=== PATIENT | female | born 1965 | race Caucasian/White ===

== ENCOUNTER → 2017-10-25 | Outpatient (CLI) | payer BC ==
[2016-06-22 11:55] VITALS: BP 129/75
--- NOTE | 2017-10-25 14:34 | MRI ---
MRI right wrist without contrast Indication: Right wrist pain and popping Comparison: None Technique: Multiplanar multi sequence MR images of the right wrist were obtained without contrast. Findings: Some of the sequences were degraded by motion. There are minimal degenerative changes of the thumb CMC joint. The joint spaces are otherwise grossly maintained. There is no evidence for acute fracture or dislocation. No joint effusion. There is mild degenerative signal of the TFC, without evidence for high-grade tear. The tendons about the wrist gr ossly intact. The carpal tunnel is unremarkable. Impression: Minimal degenerative change of the thumb CMC joint. Mild TFC fraying. Otherwise unremarka ble MRI of the right wrist. Reported By:
== END ==
LOC: RAD 13:10
PROVIDERS: ATTEND Internal Medicine
DX: M79.641 Pain in right hand (principal); M25.531 Pain in right wrist
CPT/HCPCS: 73218

== ENCOUNTER 2018-04-11 14:03 | Observation (INO) ==
[2018-04-11 14:14] VITALS: BMI 28.8
[2018-04-11 14:53] LABS: BILIRUBIN,URINE NEGATIVE (NEGATIVE); BLOOD/HEMOGLOBIN,URINE NEGATIVE (NEGATIVE); GLUCOSE, URINE NEGATIVE (NEGATIVE); KETONES,URINE NEGATIVE (NEGATIVE); LEUKOCYTE ESTERASE ,URINE NEGATIVE (NEGATIVE); NITRITES,URINE NEGATIVE (NEGATIVE); PROTEIN,URINE NEGATIVE (NEGATIVE); UROBILINOGEN,URINE NORMAL (NORMAL)
[2018-04-11 14:59] LABS: APPEARANCE,URINE CLEAR (CLEAR); COLOR,URINE YELLOW (YELLOW)
[2018-04-11] MEDS ORDERED: NS 1000 ML 1,000 ML ONE (15:16)
[2018-04-11] MEDS ORDERED: NS 1000 ML 1,000 ML IV ONE (15:33)
[2018-04-11 15:46] LABS: AMYLASE 57 Units/L (25-115); LIPASE 162 Units/L (73-393)
[2018-04-11 15:54] LABS: BASOPHILS # (AUTO) 0.1 X10^3/uL (0.0-0.1); EOSINOPHILS # (AUTO) 0.1 x10^3/uL (0.0-0.2); EOSINOPHILS % (AUTO) 0.9 % (0.9-2.9); HEMATOCRIT 39.6 % (36.0-47.0); HEMOGLOBIN 13.7 g/dL (12.0-16.0); LYMPHOCYTES # (AUTO) 2.7 X10^3/uL (1.3-2.9); LYMPHOCYTES % (AUTO) 27.3 % (21.0-51.0); MEAN CORPUSCULAR HEMOGLOBIN 31.1 pg (27.0-34.0); MEAN CORPUSCULAR HGB CONC 34.6 g/dL (33.0-35.0); MEAN CORPUSCULAR VOLUME 89.9 fL (80.0-100.0); MEAN PLATELET VOLUME 9.2 fL (7.4-11.0); MONOCYTES # (AUTO) 0.7 x10^3/uL (0.3-0.8); MONOCYTES % (AUTO) 6.6 % (0.0-13.0); NEUTROPHILS # (AUTO) 6.4 x10^3/uL (2.2-4.8); NEUTROPHILS % (AUTO) 64.2 % (42.0-75.0); PLATELET COUNT 269 X10^3/uL (150.0-450.0); RED CELL DISTRIBUTION WIDTH 13.9 % (11.6-16.5); WHITE BLOOD COUNT 10.1 X10^3/uL (3.6-10.0)
[2018-04-11 16:12] LABS: ALANINE AMINOTRANSFERASE 35 Units/L (12-78); ALBUMIN 3.5 g/dL (3.4-5.0); ALKALINE PHOSPHATASE 50 Units/L (46-116); ASPARTATE AMINO TRANSFERASE 34 Units/L (15-37); BLOOD UREA NITROGEN 13 mg/dL (7-18); CALCIUM 9.2 mg/dL (8.5-10.1); CHLORIDE 102 mmol/L (98-107); CREATININE 0.82 mg/dL (0.55-1.02); SODIUM 138 mmol/L (136-145); TOTAL PROTEIN 6.7 g/dL (6.4-8.2); eGFR NON BLACK RACES > 60 (>60)
[2018-04-11] MEDS: NS 1000 ML 1,000 ML IV SCH (17:45)
[2018-04-11] MEDS: PEPCID 20 MG IV PREMIX* 20 MG/50 ML BAG IV PRN (17:45)
[2018-04-11] MEDS ORDERED: NS 1000 ML 1,000 ML IV SCH (18:00)
[2018-04-11] MEDS: DILAUDID INJ IVP PRN (20:57)
[2018-04-11] MEDS: ZOFRAN INJ 4 MG VIAL IVP PRN (20:58)
[2018-04-12] MEDS: DILAUDID INJ IVP PRN ×8 (01:29→20:23)
[2018-04-12] MEDS: NS 1000 ML 1,000 ML IV SCH ×4 (01:29→22:32)
[2018-04-12] MEDS: ZOFRAN INJ 4 MG VIAL IVP PRN ×3 (01:58→20:23)
[2018-04-12 05:23] LABS: BASOPHILS # (AUTO) 0.1 X10^3/uL (0.0-0.1); BASOPHILS % (AUTO) 0.8 % (0.2-1.0); EOSINOPHILS # (AUTO) 0.1 x10^3/uL (0.0-0.2); EOSINOPHILS % (AUTO) 1.2 % (0.9-2.9); HEMATOCRIT 37.1 % (36.0-47.0); HEMOGLOBIN 12.7 g/dL (12.0-16.0); LYMPHOCYTES # (AUTO) 2.9 X10^3/uL (1.3-2.9); LYMPHOCYTES % (AUTO) 37.1 % (21.0-51.0); MEAN CORPUSCULAR HGB CONC 34.3 g/dL (33.0-35.0); MEAN CORPUSCULAR VOLUME 90.3 fL (80.0-100.0); MONOCYTES # (AUTO) 0.6 x10^3/uL (0.3-0.8); MONOCYTES % (AUTO) 7.5 % (0.0-13.0); NEUTROPHILS # (AUTO) 4.2 x10^3/uL (2.2-4.8); NEUTROPHILS % (AUTO) 53.4 % (42.0-75.0); PLATELET COUNT 238 X10^3/uL (150.0-450.0); RED BLOOD COUNT 4.11 X10^6/uL (3.5-5.4); RED CELL DISTRIBUTION WIDTH 13.7 % (11.6-16.5); WHITE BLOOD COUNT 7.8 X10^3/uL (3.6-10.0)
[2018-04-12 05:59] LABS: ALANINE AMINOTRANSFERASE 33 Units/L (12-78); ALKALINE PHOSPHATASE 43 Units/L (46-116); ASPARTATE AMINO TRANSFERASE 28 Units/L (15-37); BLOOD UREA NITROGEN 12 mg/dL (7-18); CALCIUM 7.9 mg/dL (8.5-10.1); CARBON DIOXIDE 30.6 mmol/L (21-32); CHLORIDE 105 mmol/L (98-107); COR CA(FOR HYPOALB) 8.7 mg/dL (8.5-10.1); CREATININE 0.83 mg/dL (0.55-1.02); SODIUM 140 mmol/L (136-145); TOTAL PROTEIN 6.1 g/dL (6.4-8.2); eGFR NON BLACK RACES > 60 (>60)
[2018-04-12] MEDS: PEPCID 20 MG IV PREMIX* 20 MG/50 ML BAG IV PRN (08:40)
[2018-04-12] MEDS ORDERED: FLAGYL IV PREMIX 500 MG BAG 500 MG/100 ML BAG IV ONE (08:42)
[2018-04-12] MEDS ORDERED: LEVAQUIN PREMIX IV 500 MG 500 MG/100 ML BAG IV ONE (08:43)
[2018-04-12] MEDS ORDERED: NEO-SYNEPHRINE INJ ONE (09:29)
--- NOTE | 2018-04-12 09:45 | DR.H&P ---
H&P - History & Physical for Day of: H&P Date: 04/11/18 - Chief Complaint Chief Complaint: RLQ PAIN, FEVER - History of Present Illness History of Present Illness: 52 WF ER ADMISSION WITH ACUTE RIGHT LOWER QUADRANT PAIN. PT ADMITTED FOR POSSIBLE ACUTE APPENDICITIS. CONSULT DR SHERIDAN. PT STATES HER ABD PAIN WAS ONSET 2 DAYS AGO, SEEN IN WALKIN CLINIC, PAIN WORSENED. PT HAS PMH OF HTN, AR - Past Medical History Past Medical History: Hypertension - Past Surgical History Surgical History: Cholecystectomy, Hysterectomy, Ortho Surgery - Family History Family Medical History: Diabetes Mellitus, Cancer, Coronary Artery Disease, Hypertension - Social History Does patient currently use any type of tobacco product: No Have you used tobacco products in the last 12 months: No Type of Tobacco Use: None Does any household member use tobacco: No Alcohol Use: None Drug Use: None - Medications Home Medications: No Known Drug Allergies Allergy (Verified 04/11/18 14:04) CONTINUE taking the following medications losartan 1 tab PO DAILY 04/11/18 [History] meclizine 1 tab PO HS 04/11/18 [History] meloxicam 1 tab PO BID 04/11/18 [History] ondansetron HCl [Zofran] 1 tab PO Q8H PRN 04/11/18 [History] phendimetrazine tartrate 1 tab PO BID 04/11/18 [History] ranitidine HCl [Zantac] 1 tab PO BID 04/11/18 [History] ropinirole 1 tab PO HS 04/11/18 [History] simvastatin [Zocor] 1 tab PO HS 04/11/18 [History] sumatriptan succinate 1 tab PO DAILY PRN 04/11/18 [History] temazepam 1 tab PO HS 04/11/18 [History] tramadol 50 mg PO TID PRN 04/11/18 [History] venlafaxine 1 tab PO BID 04/11/18 [History] - Review of Systems Constitutional: Fever, Chills ENT: No Symptoms Reported Respiratory: No Symptoms Reported Gastrointestinal: Nausea, Abdominal Pain Musculoskeletal: No Symptoms Reported Skin: No Symptoms Reported Neurological: No Symptoms Reported - Physical Exam Vital Signs: Temperature 98.2 F Pulse Rate [Left Radial] 78 Pulse Rate 95 Respiratory Rate 18 Blood Pressure [Right Arm] 112/56 Blood Pressure 127/83 O2 Sat by Pulse Oximetry 95 Oriented: Normal Eyes: Normal Ear: Normal Nose: Normal Throat: Normal Respiratory: Clear Throughout Cardiovascular: Normal : Normal Auscultation: Bowel Sounds: Normal Palpation: Normal Tenderness: RLQ Skin: Normal Musculoskeletal: Normal Psychiatric: Normal Mood Description: Calm Speech Pattern: Clear, Appropriate - Assessment/Plan (1) Acute bilateral lower abdominal pain Status: Acute Plan: ADMIT, NPO. CONSULT DR SHERIDAN FOR SURGICAL CONSULTATION. VERIFY HOME MEDS, PAIN AND NAUSEA CONTROL (2) GERD (gastroesophageal reflux disease) Status: Chronic - Allergies Allergies/Adverse Reactions: Allergies Allergy/AdvReac Type Severity Reaction Status Date / Time No Known Drug Allergies Allergy Verified 04/11/18 14:04
[2018-04-12] MEDS ORDERED: LR 1000 ML IV 1,000 ML IV ONE (10:01)
[2018-04-12] MEDS ORDERED: ZOFRAN INJ 4 MG VIAL IVP PRN (10:28)
[2018-04-12] MEDS ORDERED: REGLAN INJ 10 MG VIAL IVP PRN (10:28)
[2018-04-12] MEDS ORDERED: BENADRYL INJ 50 MG VIAL IVP PRN (10:28)
[2018-04-12] MEDS ORDERED: PHENERGAN INJ 25 MG IVP PRN (10:28)
[2018-04-12] MEDS ORDERED: ANCEF 1 GRAM IV PREMIX* 1 G/50 ML BAG IV ONE (10:32)
[2018-04-12] MEDS ORDERED: FENTANYL INJ 250 mcg ONE (10:37)
[2018-04-12] MEDS ORDERED: DILAUDID INJ ONE (11:52)
[2018-04-12] MEDS ORDERED: SUPRANE IN ONE (15:40)
[2018-04-12] MEDS ORDERED: VERSED ONE (15:40)
[2018-04-12] MEDS ORDERED: TORADOL 30 MG VIAL ONE (15:40)
[2018-04-12] MEDS ORDERED: QUELICIN (OR ANECTINE) ONE (15:40)
[2018-04-12] MEDS ORDERED: XYLOCAINE 1 % (PLAIN) ONE (15:40)
[2018-04-12] MEDS ORDERED: DIPRIVAN VIAL ONE (15:40)
[2018-04-12] MEDS ORDERED: NORCURON INJ 10 MG VIAL ONE (15:40)
[2018-04-12] MEDS ORDERED: ZOFRAN INJ 4 MG VIAL ONE (15:40)
[2018-04-12] MEDS ORDERED: ROBINUL ONE (15:40)
--- NOTE | 2018-04-12 16:02 | RAD ---
Examination: AP chest History: Are you cue pain Comparison reference 06/14/2016 Findings: Continued normal heart size with clear lungs and pleural spaces. Impression: No change; no acute chest findings. Reported By:
[2018-04-13] MEDS ORDERED: PHENERGAN INJ 25 MG IV PRN (00:13)
[2018-04-13] MEDS: DILAUDID INJ IVP PRN ×3 (00:23→13:22)
[2018-04-13] MEDS: NS 1000 ML 1,000 ML IV SCH ×2 (04:41→13:22)
[2018-04-13 06:06] LABS: BASOPHILS % (AUTO) 0.3 % (0.2-1.0); EOSINOPHILS # (AUTO) 0.1 x10^3/uL (0.0-0.2); EOSINOPHILS % (AUTO) 0.9 % (0.9-2.9); HEMATOCRIT 40.1 % (36.0-47.0); LYMPHOCYTES # (AUTO) 1.5 X10^3/uL (1.3-2.9); LYMPHOCYTES % (AUTO) 13.6 % (21.0-51.0); MEAN CORPUSCULAR HEMOGLOBIN 31.2 pg (27.0-34.0); MEAN CORPUSCULAR HGB CONC 34.8 g/dL (33.0-35.0); MEAN CORPUSCULAR VOLUME 89.7 fL (80.0-100.0); MEAN PLATELET VOLUME 8.5 fL (7.4-11.0); MONOCYTES # (AUTO) 0.8 x10^3/uL (0.3-0.8); MONOCYTES % (AUTO) 7.2 % (0.0-13.0); NEUTROPHILS # (AUTO) 8.4 x10^3/uL (2.2-4.8); PLATELET COUNT 260 X10^3/uL (150.0-450.0); RED BLOOD COUNT 4.48 X10^6/uL (3.5-5.4); RED CELL DISTRIBUTION WIDTH 13.9 % (11.6-16.5); WHITE BLOOD COUNT 10.7 X10^3/uL (3.6-10.0)
[2018-04-13 06:20] LABS: ALANINE AMINOTRANSFERASE 41 Units/L (12-78); ALBUMIN 3.2 g/dL (3.4-5.0); ALKALINE PHOSPHATASE 50 Units/L (46-116); ASPARTATE AMINO TRANSFERASE 42 Units/L (15-37); BLOOD UREA NITROGEN 5 mg/dL (7-18); CALCIUM 8.1 mg/dL (8.5-10.1); CARBON DIOXIDE 28.9 mmol/L (21-32); CHLORIDE 103 mmol/L (98-107); COR CA(FOR HYPOALB) 8.7 mg/dL (8.5-10.1); CREATININE 0.78 mg/dL (0.55-1.02); SODIUM 139 mmol/L (136-145); TOTAL PROTEIN 6.9 g/dL (6.4-8.2); eGFR NON BLACK RACES > 60 (>60)
[2018-04-13] MEDS ORDERED: MILK OF MAGNESIA PO SCH (09:00)
[2018-04-13] MEDS: PEPCID 20 MG IV PREMIX* 20 MG/50 ML BAG IV PRN (09:14)
[2018-04-13 16:18] VITALS: BP 123/64
[2018-04-13] MEDS ORDERED: COLACE CAP 100 MG PO SCH (21:00)
--- NOTE | 2018-04-24 13:56 | ED.ABDFE ---
HPI Time Seen Time seen: 15:35 PCP Primary Care Physician: JENNIFER Gallardo WATCH CRYSTAL MOLDER HPI Comment HPI Comment: RLG ABDOMINAL PAIN WITH NAUSEA FOR 7 DAYS. HER RETAIL SALES CONSULTANT DID ABD AND PELVIS CT YESTERDAY BUT IT DID NOT REPORT ABDNORMAL FINDINGS. STEP IN A HOLE TODAY. PAIN PROGRESSIVELY GOT WORSE. NO FEVER. NO DYSURIA. TAKING FOFRAN FOR NAUSEA. Complaint Doctors Chief Complaint Comments: ABDOMINAL PAIN TIMES FOR 7 DAYS WITH NAUSEA. Chief Complaint:: PT SENT OVER TO BE EVALUATED FOR HER ABD PAIN TO HER RLQ PAIN. PT SEEN BY HER PCP ON 04/10/[address] PERFORMED .PT C/O N/V SINCE LAST SATURDAY AND PT C/O STEPPING IN A HOLE TODAY AND THAT HER PAIN HAD GOTTEN BETTER AND NOW IT IS WORSE". Self Treatment fo Chief Complaint: ZOFRAN .. Reviewed Nurses Notes Review: Yes Source History Provided: Patient Mode of arrival Mode of Arrival: Ambulatory Timing Onset of Chief Complaint: 04/07/18 Came on: Suddenly Duration Since Onset: Constant Location Location: RLQ Severity Severity: Moderate Quality Quality: Sharp PMH PMH Past Medical History: Yes Past Medical History: Hypertension Past Surgical History: Yes Surgical History: Cholecystectomy, Hysterectomy and Ortho Surgery Past Surgical History Comment: LYMPHOMA, Family History History of Family Medical Conditions: Yes Family Medical History: Diabetes Mellitus, Cancer and Hypertension Family Medical History Comment: HEART DISEASE. Social History Does patient currently use any type of tobacco product: No Have you used tobacco products in the last 12 months: No Type of Tobacco Use: None Does any household member use tobacco: No Alcohol Use: None Do you use any recreational Drugs:: No Lives With: Significant Other Lives Where: Home infectious screening In the last 2 months have you had wt loss of >10#?: NO Have you had fever, night sweats or hemotysis?: No Have you traveled outside the country in the last 6 months?: No Isolation: Standard PE Vital Signs Vitals: Temperature 98.2 F Pulse Rate [Left Radial] 69 Pulse Rate 62 Respiratory Rate 18 Blood Pressure [Right Arm] 123/64 Blood Pressure 132/77 O2 Sat by Pulse Oximetry 97 COURSE Treatment Treatment: Consult Dr. Vela and speak with Dr. Coats for admission. ROR Labs Reviewed Result Diagrams: 04/13/18 05:45 04/13/18 05:45 Laboratory: WBC 10.7 X10^3/uL (3.6-10.0) H 04/13/18 05:45 RBC 4.48 X10^6/uL (3.5-5.4) 04/13/18 05:45 Hgb 14.0 g/dL (12.0-16.0) 04/13/18 05:45 Hct 40.1 % (36.0-47.0) 04/13/18 05:45 MCV 89.7 fL (80.0-100.0) 04/13/18 05:45 MCH 31.2 pg (27.0-34.0) 04/13/18 05:45 MCHC 34.8 g/dL (33.0-35.0) 04/13/18 05:45 RDW 13.9 % (11.6-16.5) 04/13/18 05:45 Plt Count 260 X10^3/uL (150.0-450.0) 04/13/18 05:45 MPV 8.5 fL (7.4-11.0) 04/13/18 05:45 Neut % (Auto) 78.0 % (42.0-75.0) H 04/13/18 05:45 Lymph % (Auto) 13.6 % (21.0-51.0) L 04/13/18 05:45 [place] % (Auto) 7.2 % (0.0-13.0) 04/13/18 05:45 Eos % (Auto) 0.9 % (0.9-2.9) 04/13/18 05:45 Baso % (Auto) 0.3 % (0.2-1.0) 04/13/18 05:45 Neut # (Auto) 8.4 x10^3/uL (2.2-4.8) H 04/13/18 05:45 Lymph # (Auto) 1.5 X10^3/uL (1.3-2.9) 04/13/18 05:45 [place] # (Auto) 0.8 x10^3/uL (0.3-0.8) 04/13/18 05:45 Eos # (Auto) 0.1 x10^3/uL (0.0-0.2) 04/13/18 05:45 Baso # (Auto) 0.0 X10^3/uL (0.0-0.1) 04/13/18 05:45 Absolute Nucleated RBC 0.0 /100WBC 04/13/18 05:45 INR Target Range - 04/12/18 09:45 INR 1.01 (0.8-1.3) 04/12/18 09:45 Sodium 139 mmol/L (136-145) 04/13/18 05:45 Corrected Sodium TNP 04/13/18 05:45 Potassium 4.0 mmol/L (3.5-5.1) 04/13/18 05:45 Chloride 103 mmol/L (98-107) 04/13/18 05:45 Carbon Dioxide 28.9 mmol/L (21-32) 04/13/18 05:45 BUN 5 mg/dL (7-18) L 04/13/18 05:45 Creatinine 0.78 mg/dL (0.55-1.02) 04/13/18 05:45 Est GFR (MDRD) Af Amer > 60 (>60) 04/13/18 05:45 Est GFR (MDRD) Non-Af > 60 (>60) 04/13/18 05:45 Glucose 82 mg/dL (65-99) 04/13/18 05:45 Calcium 8.1 mg/dL (8.5-10.1) L 04/13/18 05:45 Corrected Calcium 8.7 mg/dL (8.5-10.1) 04/13/18 05:45 Total Bilirubin 0.20 mg/dL (0.2-1.0) 04/13/18 05:45 AST 42 Units/L (15-37) H 04/13/18 05:45 ALT 41 Units/L (12-78) 04/13/18 05:45 Alkaline Phosphatase 50 Units/L (46-116) 04/13/18 05:45 Total Protein 6.9 g/dL (6.4-8.2) 04/13/18 05:45 Albumin 3.2 g/dL (3.4-5.0) L 04/13/18 05:45 Globulin 3.7 g/dL (2.5-4.5) 04/13/18 05:45 Albumin/Globulin Ratio 0.9 Ratio (1.1-2.1) L 04/13/18 05:45 Amylase 57 Units/L (25-115) 04/11/18 15:26 Lipase 162 Units/L (73-393) 04/11/18 15:26 Specimen Type Clean catch urine 04/11/18 14:37 Urine Color Yellow (YELLOW) 04/11/18 14:37 Urine Appearance Clear (CLEAR) 04/11/18 14:37 Urine pH 5.0 (5.0 - 8.0) 04/11/18 14:37 Ur Specific [place] 1.010 (1.000-1.030) 04/11/18 14:37 Urine Protein Negative (NEGATIVE) 04/11/18 14:37 Urine Glucose (UA) Negative (NEGATIVE) 04/11/18 14:37 Urine Ketones Negative (NEGATIVE) 04/11/18 14:37 Urine Occult Blood Negative (NEGATIVE) 04/11/18 14:37 Urine Nitrite Negative (NEGATIVE) 04/11/18 14:37 Urine Bilirubin Negative (NEGATIVE) 04/11/18 14:37 Urine Urobilinogen Normal (NORMAL) 04/11/18 14:37 Ur Leukocyte Esterase Negative (NEGATIVE) 04/11/18 14:37 Tissue Pathology To follow 04/12/18 11:35 Instructions Instructions: Acetaminophen; Hydrocodone tablets or capsules Nausea and Vomiting, Adult, [id number] Laparoscopic Appendectomy, Adult, Care After, [id number] Forms: Patient Portal
--- NOTE | 2018-05-08 08:31 | PCM.DCPLAN ---
Discharge Summary - Admission Date Date of Admission: 04/12/18 - Discharge Date Discharge Date: 04/13/18 - Admission Diagnoses (1) Appendicitis Status: Acute (2) Hypertension Status: Acute - Discharge Diagnoses Discharge Diagnosis: for the last 12Same as admission diagnosis - Discharge Medications Discharge Medications: Home Medication List losartan 1 tab PO DAILY 04/11/18 [History] meclizine 1 tab PO HS 04/11/18 [History] meloxicam 1 tab PO BID 04/11/18 [History] ondansetron HCl [Zofran] 1 tab PO Q8H PRN 04/11/18 [History] phendimetrazine tartrate 1 tab PO BID 04/11/18 [History] ranitidine HCl [Zantac] 1 tab PO BID 04/11/18 [History] ropinirole 1 tab PO HS 04/11/18 [History] simvastatin [Zocor] 1 tab PO HS 04/11/18 [History] sumatriptan succinate 1 tab PO DAILY PRN 04/11/18 [History] temazepam 1 tab PO HS 04/11/18 [History] tramadol 50 mg PO TID PRN 04/11/18 [History] venlafaxine 1 tab PO BID 04/11/18 [History] hydrocodone-acetaminophen [Lorcet (hydrocodone)] 1 tab PO Q4HR PRN #20 tab 04/13 [Rx] Prescriptions: hydrocodone-acetaminophen [Lorcet (hydrocodone)] POLINA OSPINA - Hospital Course Vital Signs: Temperature 98.2 F Pulse Rate [Left Radial] 69 Pulse Rate 62 Respiratory Rate 18 Blood Pressure [Right Arm] 123/64 Blood Pressure 132/77 O2 Sat by Pulse Oximetry 97 Latest Lab Results: Laboratory Last Values WBC 10.7 X10^3/uL (3.6-10.0) H 04/13/18 05:45 RBC 4.48 X10^6/uL (3.5-5.4) 04/13/18 05:45 Hgb 14.0 g/dL (12.0-16.0) 04/13/18 05:45 Hct 40.1 % (36.0-47.0) 04/13/18 05:45 MCV 89.7 fL (80.0-100.0) 04/13/18 05:45 MCH 31.2 pg (27.0-34.0) 04/13/18 05:45 MCHC 34.8 g/dL (33.0-35.0) 04/13/18 05:45 RDW 13.9 % (11.6-16.5) 04/13/18 05:45 Plt Count 260 X10^3/uL (150.0-450.0) 04/13/18 05:45 MPV 8.5 fL (7.4-11.0) 04/13/18 05:45 Neut % (Auto) 78.0 % (42.0-75.0) H 04/13/18 05:45 Lymph % (Auto) 13.6 % (21.0-51.0) L 04/13/18 05:45 [place] % (Auto) 7.2 % (0.0-13.0) 04/13/18 05:45 Eos % (Auto) 0.9 % (0.9-2.9) 04/13/18 05:45 Baso % (Auto) 0.3 % (0.2-1.0) 04/13/18 05:45 Neut # (Auto) 8.4 x10^3/uL (2.2-4.8) H 04/13/18 05:45 Lymph # (Auto) 1.5 X10^3/uL (1.3-2.9) 04/13/18 05:45 [place] # (Auto) 0.8 x10^3/uL (0.3-0.8) 04/13/18 05:45 Eos # (Auto) 0.1 x10^3/uL (0.0-0.2) 04/13/18 05:45 Baso # (Auto) 0.0 X10^3/uL (0.0-0.1) 04/13/18 05:45 Absolute Nucleated RBC 0.0 /100WBC 04/13/18 05:45 INR Target Range - 04/12/18 09:45 INR 1.01 (0.8-1.3) 04/12/18 09:45 Sodium 139 mmol/L (136-145) 04/13/18 05:45 Corrected Sodium TNP 04/13/18 05:45 Potassium 4.0 mmol/L (3.5-5.1) 04/13/18 05:45 Chloride 103 mmol/L (98-107) 04/13/18 05:45 Carbon Dioxide 28.9 mmol/L (21-32) 04/13/18 05:45 BUN 5 mg/dL (7-18) L 04/13/18 05:45 Creatinine 0.78 mg/dL (0.55-1.02) 04/13/18 05:45 Est GFR (MDRD) Af Amer > 60 (>60) 04/13/18 05:45 Est GFR (MDRD) Non-Af > 60 (>60) 04/13/18 05:45 Glucose 82 mg/dL (65-99) 04/13/18 05:45 Calcium 8.1 mg/dL (8.5-10.1) L 04/13/18 05:45 Corrected Calcium 8.7 mg/dL (8.5-10.1) 04/13/18 05:45 Total Bilirubin 0.20 mg/dL (0.2-1.0) 04/13/18 05:45 AST 42 Units/L (15-37) H 04/13/18 05:45 ALT 41 Units/L (12-78) 04/13/18 05:45 Alkaline Phosphatase 50 Units/L (46-116) 04/13/18 05:45 Total Protein 6.9 g/dL (6.4-8.2) 04/13/18 05:45 Albumin 3.2 g/dL (3.4-5.0) L 04/13/18 05:45 Globulin 3.7 g/dL (2.5-4.5) 04/13/18 05:45 Albumin/Globulin Ratio 0.9 Ratio (1.1-2.1) L 04/13/18 05:45 Amylase 57 Units/L (25-115) 04/11/18 15:26 Lipase 162 Units/L (73-393) 04/11/18 15:26 Specimen Type Clean catch urine 04/11/18 14:37 Urine Color Yellow (YELLOW) 04/11/18 14:37 Urine Appearance Clear (CLEAR) 04/11/18 14:37 Urine pH 5.0 (5.0 - 8.0) 04/11/18 14:37 Ur Specific [place] 1.010 (1.000-1.030) 04/11/18 14:37 Urine Protein Negative (NEGATIVE) 04/11/18 14:37 Urine Glucose (UA) Negative (NEGATIVE) 04/11/18 14:37 Urine Ketones Negative (NEGATIVE) 04/11/18 14:37 Urine Occult Blood Negative (NEGATIVE) 04/11/18 14:37 Urine Nitrite Negative (NEGATIVE) 04/11/18 14:37 Urine Bilirubin Negative (NEGATIVE) 04/11/18 14:37 Urine Urobilinogen Normal (NORMAL) 04/11/18 14:37 Ur Leukocyte Esterase Negative (NEGATIVE) 04/11/18 14:37 Tissue Pathology To follow 04/12/18 11:35 Hospital Course: 52 WF ER ADMISSION WITH ACUTE RIGHT LOWER QUADRANT PAIN. PT ADMITTED FOR POSSIBLE ACUTE APPENDICITIS. DR OSPINA SAW IN CONSULT. PT STATES HER ABD PAIN WAS ONSET 2 DAYS AGO, SEEN IN WALKIN CLINIC, PAIN WORSENED. THE PATIENT UNDERWENT APPENDECTOMY. sYMPTOMS IMPROVED AND PATIENT WAS DISCHARGED TO BE FOLLOWED IN OP SETTING. - Discharge Plan Disposition: 01 HOME, SELF-CARE Condition: Stable Prescriptions: hydrocodone-acetaminophen [Lorcet (hydrocodone)] 1 tab PO Q4HR PRN #20 tab PRN Reason: Moderate Pain - Follow ups/Referrals Follow ups/Referrals: Nj Colon [Primary Care Provider] - 1 WEEK POLINA OSPINA [STAFF PHYSICIAN] - 04/21/18 10:00 am (call office for appointment to be schelduled for 04/21/2018 office number is [phone].) - Instructions Instructions: Acetaminophen; Hydrocodone tablets or capsules, Nausea and Vomiting, Adult, [id number], Laparoscopic Appendectomy, Adult, Care After, [id number] Additional Instructions: may go home as per , dr ospina gave new orders. Forms: Patient Portal
== END 2018-04-13 17:05 | disposition home or self-care (01) ==
LOC: MED/SURG 14:03 → ER 14:03 → MED/SURG 17:37
PROVIDERS: ADMIT Internal Medicine; ATTEND Internal Medicine
PROC: APPYLAP (ICD-10-PCS; 2018-04-12 10:45)
DX: K21.9 Gastro-esophageal reflux disease without esophagitis; J30.89 Other allergic rhinitis; R10.31 Right lower quadrant pain; E03.8 Other specified hypothyroidism; K35.89 Other acute appendicitis; N73.6 Female pelvic peritoneal adhesions (postinfective); I10 Essential (primary) hypertension
CPT/HCPCS: 36415; 71010; 71045; 80053; 81003; 82150; 83690; 85025; 85610; 93005; 93010; 96365; 99217; 99218; 99283; 99284; A4222; S0028; S0030; G0378; J0330; J0690; J1170; J1885; J1956; J2250; J2370; J2405; J2550; J2704; J3010; J3490; J7030; J7120

== ENCOUNTER 2022-05-23 11:24 | Inpatient (IN) ==
[2022-05-23 12:50] LABS: ALANINE AMINOTRANSFERASE 21 Units/L (12-78); ALBUMIN 3.1 g/dL (3.4-5.0); ALKALINE PHOSPHATASE 178 Units/L (46-116); ASPARTATE AMINO TRANSFERASE 44 Units/L (15-37); BLOOD UREA NITROGEN 13 mg/dL (7-18); CALCIUM 7.5 mg/dL (8.5-10.1); CARBON DIOXIDE 26.8 mmol/L (21-32); CHLORIDE 96 mmol/L (98-107); COR CA(FOR HYPOALB) 8.2 mg/dL (8.5-10.1); COR NA(FOR HYPERGLY) 132 mmol/L (136-145); CREATININE 1.16 mg/dL (0.55-1.02); SODIUM 131 mmol/L (136-145); TOTAL PROTEIN 7.6 g/dL (6.4-8.2); TSH (3RD GENERATION) 8.354 uIU/mL (0.358-3.74); eGFR NON BLACK RACES 52 (>60)
[2022-05-23 13:02] LABS: BASOPHILS # (AUTO) 0.1 X10^3/uL (0.0-0.1); BASOPHILS % (AUTO) 0.9 % (0.2-1.0); EOSINOPHILS % (AUTO) 0.3 % (0.9-2.9); LYMPHOCYTES # (AUTO) 5.5 X10^3/uL (1.3-2.9); MEAN CORPUSCULAR HEMOGLOBIN 29.1 pg (27.0-34.0); MEAN CORPUSCULAR HGB CONC 36.5 g/dL (33.0-35.0); MEAN CORPUSCULAR VOLUME 79.7 fL (80.0-100.0); MEAN PLATELET VOLUME 7.6 fL (7.4-11.0); MONOCYTES # (AUTO) 0.1 x10^3/uL (0.3-0.8); MONOCYTES % (AUTO) 1.3 % (0.0-13.0); NEUTROPHILS # (AUTO) 0.5 x10^3/uL (2.2-4.8); NEUTROPHILS % (AUTO) 8.5 % (42.0-75.0); RED BLOOD COUNT 1.69 X10^6/uL (3.5-5.4); RED CELL DISTRIBUTION WIDTH 16.1 % (11.6-16.5); WHITE BLOOD COUNT 6.2 X10^3/uL (3.6-10.0)
[2022-05-23 13:04] LABS: HEMATOCRIT 13.4 % (36.0-47.0); HEMOGLOBIN 4.9 g/dL (12.0-16.0)
[2022-05-23 13:09] LABS: INR 1.32 (0.8-1.3)
[2022-05-23 13:18] LABS: PLATELET MORPHOLOGY COMMENT NORMAL (NORMAL)
[2022-05-23] MEDS ORDERED: TYLENOL 325 MG TAB PO ONE (13:45)
[2022-05-23] MEDS ORDERED: BENADRYL INJ 50 MG VIAL IVP ONE (13:46)
[2022-05-23] MEDS ORDERED: ZOFRAN INJ 4 MG VIAL IVP PRN (14:01)
[2022-05-23 14:34] VITALS: BMI 26.6
[2022-05-23] MEDS ORDERED: NS 500 ML IV 500 ML IV ONE ×2 (14:46→23:29)
[2022-05-23] MEDS ORDERED: RESTORIL CAP 15 MG PO PRN (18:48)
[2022-05-23] MEDS ORDERED: REQUIP PO SCH (21:00)
[2022-05-23 22:23] LABS: HEMATOCRIT 23.6 % (36.0-47.0); HEMOGLOBIN 8.3 g/dL (12.0-16.0)
[2022-05-24 05:37] LABS: HEMOGLOBIN 7.9 g/dL (12.0-16.0); MEAN CORPUSCULAR HGB CONC 36.3 g/dL (33.0-35.0)
[2022-05-24 05:40] LABS: BASOPHILS # (AUTO) 0.1 X10^3/uL (0.0-0.1); BASOPHILS % (AUTO) 1.1 % (0.2-1.0); EOSINOPHILS % (AUTO) 0.5 % (0.9-2.9); HEMATOCRIT 21.8 % (36.0-47.0); LYMPHOCYTES # (AUTO) 6.3 X10^3/uL (1.3-2.9); LYMPHOCYTES % (AUTO) 85.1 % (21.0-51.0); MEAN CORPUSCULAR HEMOGLOBIN 29.2 pg (27.0-34.0); MEAN CORPUSCULAR VOLUME 80.6 fL (80.0-100.0); MEAN PLATELET VOLUME 7.4 fL (7.4-11.0); MONOCYTES # (AUTO) 0.4 x10^3/uL (0.3-0.8); MONOCYTES % (AUTO) 5.3 % (0.0-13.0); NEUTROPHILS # (AUTO) 0.6 x10^3/uL (2.2-4.8); RED CELL DISTRIBUTION WIDTH 16.1 % (11.6-16.5); WHITE BLOOD COUNT 7.4 X10^3/uL (3.6-10.0)
[2022-05-24 05:45] LABS: ALANINE AMINOTRANSFERASE 16 Units/L (12-78); ALBUMIN 2.8 g/dL (3.4-5.0); ALKALINE PHOSPHATASE 160 Units/L (46-116); ASPARTATE AMINO TRANSFERASE 40 Units/L (15-37); BLOOD UREA NITROGEN 11 mg/dL (7-18); CALCIUM 7.3 mg/dL (8.5-10.1); CARBON DIOXIDE 27.4 mmol/L (21-32); CHLORIDE 99 mmol/L (98-107); COR CA(FOR HYPOALB) 8.3 mg/dL (8.5-10.1); COR NA(FOR HYPERGLY) 133 mmol/L (136-145); CREATININE 0.99 mg/dL (0.55-1.02); SODIUM 133 mmol/L (136-145); TOTAL PROTEIN 6.9 g/dL (6.4-8.2); eGFR NON BLACK RACES > 60 (>60)
[2022-05-24] MEDS: SYNTHROID 150 mcg TAB PO SCH (09:10)
[2022-05-24] MEDS ORDERED: SYNTHROID 150 mcg TAB ONE (09:13)
[2022-05-24] MEDS ORDERED: MAALOX or MYLANTA PO PRN (11:50)
[2022-05-24] MEDS ORDERED: MAALOX or MYLANTA ONE (11:54)
[2022-05-24 14:43] LABS: HEMOGLOBIN 7.8 g/dL (12.0-16.0)
[2022-05-24 17:11] LABS: HEMOGLOBIN 7.9 g/dL (12.0-16.0)
[2022-05-24] MEDS ORDERED: ALLEGRA ONE (17:35)
[2022-05-24] MEDS: ALLEGRA PO SCH (17:36)
[2022-05-24] MEDS: MICRO K EXTEN CAP 10 MEQ PO SCH (17:36)
[2022-05-24] MEDS: COZAAR PO SCH (17:36)
[2022-05-24] MEDS ORDERED: GLUCOPHAGE ONE (20:03)
[2022-05-24] MEDS: REQUIP PO SCH (20:10)
[2022-05-24] MEDS: ZOCOR TAB 40 MG PO SCH (20:11)
[2022-05-24] MEDS: GLUCOPHAGE PO SCH (20:12)
[2022-05-24] MEDS: EFFEXOR TAB 75 MG (BID DOSING) PO SCH (20:13)
[2022-05-24] MEDS: JANUVIA PO SCH (20:14)
[2022-05-24] MEDS ORDERED: RESTORIL CAP 15 MG PO PRN (21:00)
[2022-05-24] MEDS: NEURONTIN CAP 300 MG PO SCH (21:15)
[2022-05-25] MEDS: NEURONTIN CAP 300 MG PO SCH ×3 (05:12→21:09)
[2022-05-25] MEDS: SYNTHROID 150 mcg TAB PO SCH (05:32)
[2022-05-25 05:39] LABS: BASOPHILS % (AUTO) 0.7 % (0.2-1.0); EOSINOPHILS % (AUTO) 0.3 % (0.9-2.9); HEMATOCRIT 20.9 % (36.0-47.0); HEMOGLOBIN 7.6 g/dL (12.0-16.0); LYMPHOCYTES # (AUTO) 4.9 X10^3/uL (1.3-2.9); LYMPHOCYTES % (AUTO) 86.5 % (21.0-51.0); MEAN CORPUSCULAR HEMOGLOBIN 29.3 pg (27.0-34.0); MEAN CORPUSCULAR HGB CONC 36.4 g/dL (33.0-35.0); MEAN CORPUSCULAR VOLUME 80.5 fL (80.0-100.0); MEAN PLATELET VOLUME 7.2 fL (7.4-11.0); MONOCYTES # (AUTO) 0.2 x10^3/uL (0.3-0.8); MONOCYTES % (AUTO) 3.2 % (0.0-13.0); NEUTROPHILS # (AUTO) 0.5 x10^3/uL (2.2-4.8); NEUTROPHILS % (AUTO) 9.3 % (42.0-75.0); RED BLOOD COUNT 2.59 X10^6/uL (3.5-5.4); WHITE BLOOD COUNT 5.7 X10^3/uL (3.6-10.0)
[2022-05-25 05:45] LABS: ALANINE AMINOTRANSFERASE 18 Units/L (12-78); ALBUMIN 2.7 g/dL (3.4-5.0); ALKALINE PHOSPHATASE 169 Units/L (46-116); ASPARTATE AMINO TRANSFERASE 38 Units/L (15-37); BLOOD UREA NITROGEN 11 mg/dL (7-18); CALCIUM 7.7 mg/dL (8.5-10.1); CARBON DIOXIDE 24.3 mmol/L (21-32); CHLORIDE 100 mmol/L (98-107); COR CA(FOR HYPOALB) 8.7 mg/dL (8.5-10.1); COR NA(FOR HYPERGLY) 134 mmol/L (136-145); CREATININE 0.94 mg/dL (0.55-1.02); SODIUM 134 mmol/L (136-145); TOTAL PROTEIN 6.9 g/dL (6.4-8.2); eGFR NON BLACK RACES > 60 (>60)
[2022-05-25 06:12] LABS: PLATELET MORPHOLOGY COMMENT NORMAL (NORMAL)
[2022-05-25] MEDS ORDERED: ALLEGRA ONE (08:29)
[2022-05-25] MEDS ORDERED: GLUCOPHAGE ONE ×2 (08:29→20:11)
[2022-05-25] MEDS: ALLEGRA PO SCH (08:42)
[2022-05-25] MEDS: GLUCOPHAGE PO SCH ×2 (08:43→20:39)
[2022-05-25] MEDS: COZAAR PO SCH (08:43)
[2022-05-25] MEDS: ZyrTEC TAB 10 MG PO SCH (08:43)
[2022-05-25] MEDS: DETROL LA 4 MG CAP EXT REL PO SCH (08:43)
[2022-05-25] MEDS: EFFEXOR TAB 75 MG (BID DOSING) PO SCH ×2 (08:44→20:39)
[2022-05-25] MEDS: SINGULAIR TAB 10 MG PO SCH (08:45)
[2022-05-25] MEDS: JANUVIA PO SCH ×2 (08:45→20:40)
[2022-05-25] MEDS: MICRO K EXTEN CAP 10 MEQ PO SCH (08:46)
--- NOTE | 2022-05-25 08:59 | DR.H&P ---
H&P - History & Physical for Day of: H&P Date: 05/23/22 - Chief Complaint Chief Complaint: WEAKNESS, DIZZINESS, NAUSEA, VOMITING - History of Present Illness History of Present Illness: IS A 57 YEAR OLD PATIENT OF OURS. SHE PRESENTED TO THE ER WITH COMPLAINTS OF WEAKNESS, DIZZINESS, NAUSEA, AND OCCASIONAL VOMITING. PATIENT REPORTS THAT SHE ALSO HAD SEVERAL EPISODES OF DIARRHEA OVER THE WEEKEND. SHE HAD LABWORK DONE AT OUR OFFICE LAST WEEK, WHICH REVEALED A LOW HEMOGLOBIN, HOWEVER, WE WERE UNABLE TO REACH PATIENT DESPITE SEVERAL ATTEMPTS AND MESSAGES LEFT. SHE DENIES A HISTORY OF ANEMIA. AFTER LOOKING BACK AT HER PAST LABS, HER HEMOGLOBIN GENERALLY RUNS AROUND 12 TO 13g/dl. HER PMH INCLUDES DM II, HTN, HYPOTHYROIDISM, FATTY LIVER, GERD, IBS, APPENDECTOMY, CHOLECYSTECTOMY, HYSTERECTOMY. ON ARRIVAL TO THE ER, PATIENT WAS NOTED TO BE VERY PALE IN COLOR. HER VITALS WERE: 98.2-117-20-98%-103/51. LABS WERE OBTAINED. WBC 6.2, RBC 1.69, HGB 4.9, HCT 13.4, PLT COUNT 4, INR 1.32, SODIUM 131, POTASSIUM 4.1, CHLORIDE 96, BUN 13, CREATININE 1.16, GLUCOSE 137, CALCIUM 7.5, AST 44, ALT 21, ALK PHOS 178, CRP 62.90, ALBUMIN 3.1, TSH 3RD GEN 8.354. COVID-19 NEGATIVE. PATIENT WAS ADMITTED TO THE HOSPITAL FOR FURTHER EVALUATION AND TREATMENT OF SYMPTOMATIC ANEMIA AND THROMBOCYTOSIS. SHE WAS TRANSFUSED WITH TWO UNITS OF PACKED RED BLOOD CELLS AND TWO SUPER PACKS OF PLATELETS. SHE WAS STARTED OTBS ACHS, ZOFRAN 4MG IV Q6H PRN, AND HER HOME MEDICATIONS WERE RESUMED. AFTER TRANSFUSIONS, HER HEMOGLOBIN WAS NOTED TO COME UP TO 7.9 AND PLATELETS CAME UP TO 27. WE WILL MONITOR H&H Q6H AND TRANSFUSE TWO ADDITIONAL UNITS OF PRBC IF HGB FALLS BELOW 7.5. OTHERWISE, WE PLAN TO FOLLOW-UP WITH AM LABS AND CONTINUE TO MONITOR. TIME SPENT ON CLINICAL ASSESSMENT, REVIWING LABS AND IMAGING, DECISION MAKING, AND DOCUMENTATION GREATER THAN 75 M INUTES. - Past Medical History Past Medical History: Diabetes, Hypertension, Hypothyroidism, Liver Disease - Past Surgical History Surgical History: Appendectomy, Cholecystectomy, Hysterectomy - Family History Family Medical History: Diabetes Mellitus, Hypertension - Social History Does patient currently use any type of tobacco product: No Have you used tobacco products in the last 12 months: No Type of Tobacco Use: None Does any household member use tobacco: No Alcohol Use: None Drug Use: None - Medications Home Medications: No Known Drug Allergies Allergy (Verified 04/11/18 14:04) CONTINUE taking the following medications conjugated estrogens 1.25 mg tablet (Premarin) 1 tab PO QDAY 05/23/22 [History] ergocalciferol (vitamin D2) 1,250 mcg (50,000 unit) capsule 1 cap PO QWEEK 05/23/22 [History] fexofenadine 180 mg tablet 180 mg PO DAILY 05/23/22 [History] gabapentin 300 mg capsule 300 cap PO DIRECTED 05/23/22 [History] levocetirizine 5 mg tablet (Xyzal) 5 mg PO DAILY 05/23/22 [History] levothyroxine 125 mcg tablet 1 tab PO QDAY 05/23/22 [History] losartan 50 mg tablet 1 tab PO QDAY 05/23/22 [History] montelukast 10 mg tablet 1 tab PO QAM 05/23/22 [History] potassium chloride 10 mEq capsule,extended release 2 cap PO QDAY 05/23/22 [History] rabeprazole 20 mg tablet,delayed release 1 tab PO QDAY 05/23/22 [History] ropinirole 3 mg tablet 1 tab PO QPM 05/23/22 [History] semaglutide 0.25 mg or 0.5 mg (2 mg/1.5 mL) subcutaneous pen injector (Ozempic) 0.25 mg subcut QWEEK 05/23/22 [History] simvastatin 40 mg tablet 1 tab PO QPM 05/23/22 [History] sitagliptin 50 mg-metformin 1,000 mg tablet (Janumet) 1 tab PO BID 05/23/22 [Hi story] solifenacin 10 mg tablet 1 tab PO QDAY 05/23/22 [History] temazepam 15 mg capsule 15 mg PO DIRECTED 05/23/22 [History] venlafaxine 75 mg tablet 1 tab PO BID 05/23/22 [History] - Review of Systems Constitutional: Weakness Eyes: No Symptoms Reported ENT: No Symptoms Reported Respiratory: No Symptoms Reported Cardiovascular: [place] Gastrointestinal: Nausea, Vomiting, Diarrhea Genitourinary: No Symptoms Reported Musculoskeletal: No Symptoms Reported Skin: No Symptoms Reported Neurological: Weakness - Physical Exam Vital Signs: Temperature 98.3 F Pulse Rate [Apical] 92 Pulse Rate 117 Respiratory Rate 22 Blood Pressure [Left Arm] 121/65 Blood Pressure [Right Arm] 123/64 Blood Pressure 107/58 O2 Sat by Pulse Oximetry 97 Oriented: Normal Eyes: Normal Ear: Normal Nose: Normal Throat: Normal Respiratory: Clear Throughout Cardiovascular: Tachycardia : Normal Auscultation: Bowel Sounds: Normal Palpation: Normal Tenderness: Normal Skin: Decreased [place] Musculoskeletal: Normal Psychiatric: Normal Mood Description: Calm Affect: Normal Speech Pattern: Clear - Assessment/Plan (1) Symptomatic anemia Status: Acute Plan: ADMIT, TRANSFUSED 2 UNITS OF PRBC AND 2 SUPER PACKS OF PLATELETS ON ADMISSION, MONITOR H&H Q6H, TRANSFUSE ADDITIONAL UNITS IF NEEDED, ZOFRAN 4MG IV Q4H PRN, RESUME HOME MEDICATIONS (2) Thrombocytosis Status: Acute (3) Hypothyroidism Qualifiers: Hypothyroidism type: acquired Qualified Code(s): E03.9 - Hypothyroidism, unspecified Status: Chronic (4) Hypertension Qualifiers: Hypertension type: primary hypertension Qualified Code(s): I10 - Essential (primary) hypertension Status: Chronic (5) GERD (gastroesophageal reflux disease) Qualifiers: Esophagitis presence: esophagitis presence not specified Qualified Code(s): K21.9 - Gastro-esophageal reflux disease without esophagitis Status: Chronic (6) IBS (irritable bowel syndrome) Qualifiers: Irritable bowel syndrome type: with diarrhea Qualified Code(s): K58.0 - Irritable bowel syndrome with diarrhea Status: Chronic - Allergies Allergies/Adverse Reactions: Allergies Allergy/AdvReac Type Severity Reaction Status Date / Time No Known Drug Allergies Allergy Verified 04/11/18 14:04
[2022-05-25] MEDS: PREMARIN PO SCH (09:24)
[2022-05-25] MEDS: PEPCID 20 MG VIAL 20 MG in NS 50 ML IV 50 ML IV SCH ×2 (10:57→20:37)
[2022-05-25] MEDS: PROTONIX INJ 40 MG VIAL IVP SCH ×2 (10:58→20:32)
--- NOTE | 2022-05-25 11:33 | PCM.PROG ---
Progress Note - Progress Note for Day of Date of Exam: 05/25/22 - Subjective Subjective: WAS ADMITTED ON 05/23 FOR TREATMENT OF SYMPTOMATIC ANEMIA AND THROMBOSIS. SHE HAS HAD A RECENT VIRAL ILLNESS. WE SUSPECT THAT THIS IS THE CAUSE OF THE ACUTE ANEMIA AND THROMBOSIS. SHE HAS HAD TWO UNITS OF PRBC AND TWO SUPER PACKS OF PLATELETS SINCE ADMISSION. TODAY, SHE IS ALERT AND ORIENTED, LYING IN BED ON MORNING ROUNDS. SHE REPORTS SLIGHT IMPROVEMENT IN WEAKNESS SINCE ADMISSION. ON EXAMINATION, HEART IS REGULAR IN RATE AND RHYTHM. BILATERAL LUNGS ARE CLEAR TO AUSCULTATION. ABDOMEN IS ROUND, SOFT, AND NON-TENDER WITH NORAMAL BOWEL SOUNDS NOTED IN ALL QUADRANTS. NO UPPER OR LOWER EXTREMITY EDEMA NOTED. HER VITALS THIS MORNING ARE: 98.3-92-22-97%-121/65. LABS WERE OBTAINED. WBC 5.7, RBC 2.59, HGB 7.6, HCT 20.9, PLT COUNT 18, SODIUM 134, POTASSIUM 4.2, BUN 11, CREATININE 0.94, GLUCOSE 116, CALCIUM 7.7, AST 38, AST 38, ALK PHOS 169, CRP 66.50, TOTAL PROTEIN 6.9, ALBUMIN 2.7. STOOL POSITIVE FOR OCCULT BLOOD. H-PYLORI NEGATIVE. LUPUS PANEL AND PLATELET ANTIBODIES ARE PENDING. SHE IS CURRENTLY RECEIVING PEPCID 20MG IV Q12H, PROTONIX 40MG IV BID, SYNTHROID 150MCG PO DAILY, ZOFRAN 4MG IV Q6H PRN, AND HER HOME MEDICATIONS WERE RESUMED. TODAY, WE WILL ADD PREDNISONE 20MG PO BID. WE WILL MONITOR H&H Q8H. WE WILL PLAN TO TRANSFUSE 2 ADDITIONAL UNITS OF PRBC IF HEMOGLOBIN FALLS BELOW 7.0. WE WILL TRANSFUSE 2 SUPER PACKS OF PLATELETS IF PLATELETS FALL BELOW 10. OTHERWISE, WE WILL FOLLOW- UP WITH AM LABS AND CONTINUE TO MONITOR. TIME SPENT ON CLINICAL ASSESSMENT, REVIWING LABS AND IMAGING, DECISION MAKING, AND DOCUMENTATION GREATER THAN 45 MINUTES. - Past Medical Family Social History Past Med/Fam/Surg Hx: No changes since H&P Allergies: Allergies No Known Drug Allergies Allergy (Verified 04/11/18 14:04) - Review of Systems ROS: No change since H&P - Vital Signs and I&O's Vital Signs: Temperature 98.3 F Pulse Rate [Apical] 92 Pulse Rate 80 Respiratory Rate 19 Blood Pressure [Left Arm] 121/65 Blood Pressure [Right Arm] 123/64 Blood Pressure 129/69 O2 Sat by Pulse Oximetry 98 Intake and Output: Intake & Output 05/22/22 05/23/22 05/24/22 05/25/22 11:59 11:59 11:59 11:59 Intake Total 2410 / 2410 800 / 800 Output Total 700 / 700 Balance 1710 / 1710 800 / 800 - Physical Exam Oriented: Normal Eyes: Normal Ear: Normal Nose: Normal Throat: Normal Respiratory: Normal Cardiovascular: Normal : Normal Auscultation: Bowel Sounds: Normal Palpation: Normal Tenderness: Normal Skin: Decreased Turgur Musculoskeletal: Normal Psychiatric: Normal Mood Description: Calm Affect: Normal Speech Pattern: Clear - Laboratory and Diagnostics Result Diagrams: 05/25/22 04:45 05/25/22 04:45 Labs: Laboratory WBC 5.7 X10^3/uL (3.6-10.0) 05/25/22 04:45 RBC 2.59 X10^6/uL (3.5-5.4) L 05/25/22 04:45 Hgb 7.6 g/dL (12.0-16.0) L 05/25/22 04:45 Hct 20.9 % (36.0-47.0) L 05/25/22 04:45 MCV 80.5 fL (80.0-100.0) 05/25/22 04:45 MCH 29.3 pg (27.0-34.0) 05/25/22 04:45 MCHC 36.4 g/dL (33.0-35.0) H 05/25/22 04:45 RDW 16.0 % (11.6-16.5) 05/25/22 04:45 Plt Count 18 X10^3/uL (150.0-450.0) L* 05/25/22 04:45 Plt Count Comment Decreased (ADEQUATE) A 05/25/22 04:45 MPV 7.2 fL (7.4-11.0) L 05/25/22 04:45 Neut % (Auto) 9.3 % (42.0-75.0) L 05/25/22 04:45 Lymph % (Auto) 86.5 % (21.0-51.0) H 05/25/22 04:45 [place] % (Auto) 3.2 % (0.0-13.0) 05/25/22 04:45 Eos % (Auto) 0.3 % (0.9-2.9) L 05/25/22 04:45 Baso % (Auto) 0.7 % (0.2-1.0) 05/25/22 04:45 Neut # (Auto) 0.5 x10^3/uL (2.2-4.8) L 05/25/22 04:45 Lymph # (Auto) 4.9 X10^3/uL (1.3-2.9) H 05/25/22 04:45 [place] # (Auto) 0.2 x10^3/uL (0.3-0.8) L 05/25/22 04:45 Eos # (Auto) 0.0 x10^3/uL (0.0-0.2) 05/25/22 04:45 Baso # (Auto) 0.0 X10^3/uL (0.0-0.1) 05/25/22 04:45 Absolute Nucleated RBC 1.6 /100WBC 05/25/22 04:45 Total Counted 100 05/25/22 04:45 Neutrophils % (Manual) 6 % (39-76) L 05/25/22 04:45 Lymphocytes % (Manual) 93 % (13-43) H 05/25/22 04:45 Monocytes % (Manual) 1 % (4-9) L 05/25/22 04:45 Nucleated RBCs 1 05/25/22 04:45 Atypical Lymphocytes Present 05/25/22 04:45 Plt Morphology Comment Normal (NORMAL) 05/25/22 04:45 RBC Morphology Normal (NORMAL) 05/25/22 04:45 PT 16.0 SECONDS (11.8-14.3) 05/23/22 11:45 INR Target Range - 05/23/22 11:45 INR 1.32 (0.8-1.3) H 05/23/22 11:45 APTT 33.1 SECONDS (22.9-36.5) 05/23/22 11:45 PTT Comment - 05/23/22 11:45 Sodium 134 mmol/L (136-145) L 05/25/22 04:45 Corrected Sodium 134 mmol/L (136-145) L 05/25/22 04:45 Potassium 4.2 mmol/L (3.5-5.1) 05/25/22 04:45 Chloride 100 mmol/L (98-107) 05/25/22 04:45 Carbon Dioxide 24.3 mmol/L (21-32) 05/25/22 04:45 BUN 11 mg/dL (7-18) 05/25/22 04:45 Creatinine 0.94 mg/dL (0.55-1.02) 05/25/22 04:45 Est GFR (MDRD) Af Amer > 60 (>60) 05/25/22 04:45 Est GFR (MDRD) Non-Af > 60 (>60) 05/25/22 04:45 Glucose 116 mg/dL (65-99) H 05/25/22 04:45 POC Glucose (mg/dL) 108 mg/dL (65-99) H 05/25/22 05:29 Calcium 7.7 mg/dL (8.5-10.1) L 05/25/22 04:45 Corrected Calcium 8.7 mg/dL (8.5-10.1) 05/25/22 04:45 Total Bilirubin 0.50 mg/dL (0.2-1.0) 05/25/22 04:45 AST 38 Units/L (15-37) H 05/25/22 04:45 ALT 18 Units/L (12-78) 05/25/22 04:45 Alkaline Phosphatase 169 Units/L (46-116) H 05/25/22 04:45 C-Reactive Protein 66.50 mg/L (0-3.0) H 05/25/22 04:45 Total Protein 6.9 g/dL (6.4-8.2) 05/25/22 04:45 Albumin 2.7 g/dL (3.4-5.0) L 05/25/22 04:45 Globulin 4.2 g/dL (2.5-4.5) 05/25/22 04:45 Albumin/Globulin Ratio 0.6 Ratio (1.1-2.1) L 05/25/22 04:45 TSH 3rd Generation 8.354 uIU/mL (0.358-3.74) H 05/23/22 11:45 Stool Description 20g brown unformed 05/24/22 10:30 Stl Occult Blood (IFOB) Positive (NEGATIVE) A 05/24/22 10:30 Stool H. pylori Ag Negative (NEGATIVE) 05/24/22 10:30 SARS-CoV-2 (PCR) Negative (NEGATIVE) 05/23/22 13:35 Blood Type O POSITIVE 05/23/22 12:53 Antibody Screen Negative 05/23/22 12:53 Crossmatch See Detail 05/23/22 12:53 - Plan (1) Symptomatic anemia Status: Acute Plan: MONITOR H&H Q8H, TRANSFUSE ADDITIONAL UNITS IF NEEDED, PREDNISONE 20MG PO BID, PEPCID 20MG IV Q12H, PROTONIX 40MG IV BID, ZOFRAN 4MG IV Q4H PRN, RESUME HOME MEDICATIONS (2) Thrombocytosis Status: Acute (3) Hypothyroidism Status: Chronic Qualifiers: Hypothyroidism type: acquired Qualified Code(s): E03.9 - Hypothyroidism, unspecified (4) Hypertension Status: Chronic Qualifiers: Hypertension type: primary hypertension Qualified Code(s): I10 - Essential (primary) hypertension (5) GERD (gastroesophageal reflux disease) Status: Chronic Qualifiers: Esophagitis presence: esophagitis presence not specified Qualified Code(s): K21.9 - Gastro-esophageal reflux disease without esophagitis (6) IBS (irritable bowel syndrome) Status: Chronic Qualifiers: Irritable bowel syndrome type: with diarrhea Qualified Code(s): K58.0 - Irritable bowel syndrome with diarrhea
[2022-05-25 12:09] LABS: HEMATOCRIT 22.2 % (36.0-47.0)
[2022-05-25] MEDS: PREDNISONE TAB 20 MG PO SCH ×2 (12:16→20:40)
[2022-05-25 19:54] LABS: HEMATOCRIT 22.8 % (36.0-47.0); HEMOGLOBIN 8.2 g/dL (12.0-16.0)
[2022-05-25] MEDS: REQUIP PO SCH (20:39)
[2022-05-25] MEDS: ZOCOR TAB 40 MG PO SCH (20:40)
[2022-05-26] MEDS: NEURONTIN CAP 300 MG PO SCH ×3 (05:32→22:18)
[2022-05-26] MEDS: SYNTHROID 150 mcg TAB PO SCH (05:33)
[2022-05-26 06:00] LABS: EOSINOPHILS % (AUTO) 0.8 % (0.9-2.9); HEMOGLOBIN 8.3 g/dL (12.0-16.0); MONOCYTES # (AUTO) 0.2 x10^3/uL (0.3-0.8); RED CELL DISTRIBUTION WIDTH 16.2 % (11.6-16.5)
[2022-05-26 06:03] LABS: ALANINE AMINOTRANSFERASE 23 Units/L (12-78); ALBUMIN 2.9 g/dL (3.4-5.0); ALKALINE PHOSPHATASE 191 Units/L (46-116); ASPARTATE AMINO TRANSFERASE 38 Units/L (15-37); BLOOD UREA NITROGEN 13 mg/dL (7-18); CALCIUM 7.7 mg/dL (8.5-10.1); CARBON DIOXIDE 22.6 mmol/L (21-32); CHLORIDE 99 mmol/L (98-107); COR CA(FOR HYPOALB) 8.6 mg/dL (8.5-10.1); COR NA(FOR HYPERGLY) 134 mmol/L (136-145); CREATININE 0.95 mg/dL (0.55-1.02); SODIUM 133 mmol/L (136-145); TOTAL PROTEIN 7.4 g/dL (6.4-8.2); eGFR NON BLACK RACES > 60 (>60)
[2022-05-26 06:07] LABS: BASOPHILS % (AUTO) 1.1 % (0.2-1.0); HEMATOCRIT 22.9 % (36.0-47.0); LYMPHOCYTES # (AUTO) 2.6 X10^3/uL (1.3-2.9); LYMPHOCYTES % (AUTO) 73.3 % (21.0-51.0); MEAN CORPUSCULAR HEMOGLOBIN 29.1 pg (27.0-34.0); MEAN CORPUSCULAR HGB CONC 36.3 g/dL (33.0-35.0); MEAN CORPUSCULAR VOLUME 80.2 fL (80.0-100.0); MEAN PLATELET VOLUME 7.3 fL (7.4-11.0); NEUTROPHILS # (AUTO) 0.6 x10^3/uL (2.2-4.8); NEUTROPHILS % (AUTO) 17.8 % (42.0-75.0); RED BLOOD COUNT 2.86 X10^6/uL (3.5-5.4); WHITE BLOOD COUNT 3.5 X10^3/uL (3.6-10.0)
[2022-05-26 06:32] LABS: PLATELET MORPHOLOGY COMMENT NORMAL (NORMAL)
[2022-05-26] MEDS ORDERED: GLUCOPHAGE ONE ×2 (08:12→19:45)
[2022-05-26] MEDS ORDERED: ALLEGRA ONE (08:12)
[2022-05-26] MEDS: MICRO K EXTEN CAP 10 MEQ PO SCH (08:21)
[2022-05-26] MEDS: PEPCID 20 MG VIAL 20 MG in NS 50 ML IV 50 ML IV SCH ×2 (08:21→20:39)
[2022-05-26] MEDS: COZAAR PO SCH (08:22)
[2022-05-26] MEDS: GLUCOPHAGE PO SCH ×2 (08:22→20:40)
[2022-05-26] MEDS: DETROL LA 4 MG CAP EXT REL PO SCH (08:22)
[2022-05-26] MEDS: SINGULAIR TAB 10 MG PO SCH (08:23)
[2022-05-26] MEDS: PROTONIX INJ 40 MG VIAL IVP SCH ×2 (08:23→20:39)
[2022-05-26] MEDS: PREDNISONE TAB 20 MG PO SCH ×2 (08:23→20:40)
[2022-05-26] MEDS: EFFEXOR TAB 75 MG (BID DOSING) PO SCH ×2 (08:23→20:40)
[2022-05-26] MEDS: ZyrTEC TAB 10 MG PO SCH (08:23)
[2022-05-26] MEDS: ALLEGRA PO SCH (08:23)
[2022-05-26] MEDS: JANUVIA PO SCH ×2 (08:33→20:42)
[2022-05-26] MEDS: PREMARIN PO SCH (12:00)
[2022-05-26] MEDS: ZOCOR TAB 40 MG PO SCH (20:41)
[2022-05-26] MEDS: REQUIP PO SCH (20:41)
[2022-05-27 05:39] LABS: BASOPHILS % (AUTO) 0.8 % (0.2-1.0); EOSINOPHILS % (AUTO) 0.6 % (0.9-2.9); HEMATOCRIT 21.7 % (36.0-47.0); HEMOGLOBIN 7.7 g/dL (12.0-16.0); LYMPHOCYTES # (AUTO) 2.5 X10^3/uL (1.3-2.9); LYMPHOCYTES % (AUTO) 76.7 % (21.0-51.0); MEAN CORPUSCULAR HEMOGLOBIN 28.6 pg (27.0-34.0); MEAN CORPUSCULAR HGB CONC 35.6 g/dL (33.0-35.0); MEAN CORPUSCULAR VOLUME 80.4 fL (80.0-100.0); MEAN PLATELET VOLUME 8.4 fL (7.4-11.0); MONOCYTES # (AUTO) 0.1 x10^3/uL (0.3-0.8); MONOCYTES % (AUTO) 2.7 % (0.0-13.0); NEUTROPHILS # (AUTO) 0.6 x10^3/uL (2.2-4.8); NEUTROPHILS % (AUTO) 19.2 % (42.0-75.0); RED CELL DISTRIBUTION WIDTH 15.7 % (11.6-16.5); WHITE BLOOD COUNT 3.2 X10^3/uL (3.6-10.0)
[2022-05-27] MEDS: NEURONTIN CAP 300 MG PO SCH ×3 (05:39→21:15)
[2022-05-27] MEDS: SYNTHROID 150 mcg TAB PO SCH (05:39)
[2022-05-27 05:54] LABS: ALANINE AMINOTRANSFERASE 23 Units/L (12-78); ALBUMIN 2.9 g/dL (3.4-5.0); ALKALINE PHOSPHATASE 176 Units/L (46-116); ASPARTATE AMINO TRANSFERASE 32 Units/L (15-37); BLOOD UREA NITROGEN 17 mg/dL (7-18); CALCIUM 7.8 mg/dL (8.5-10.1); CARBON DIOXIDE 24.5 mmol/L (21-32); CHLORIDE 98 mmol/L (98-107); COR CA(FOR HYPOALB) 8.7 mg/dL (8.5-10.1); COR NA(FOR HYPERGLY) 135 mmol/L (136-145); CREATININE 0.95 mg/dL (0.55-1.02); SODIUM 133 mmol/L (136-145); TOTAL PROTEIN 7.1 g/dL (6.4-8.2); eGFR NON BLACK RACES > 60 (>60)
[2022-05-27 06:04] LABS: PLATELET MORPHOLOGY COMMENT NORMAL (NORMAL)
[2022-05-27] MEDS ORDERED: ALLEGRA ONE (09:56)
[2022-05-27] MEDS ORDERED: GLUCOPHAGE ONE ×2 (09:57→19:49)
[2022-05-27] MEDS: PROTONIX INJ 40 MG VIAL IVP SCH ×2 (09:59→20:31)
[2022-05-27] MEDS: GLUCOPHAGE PO SCH ×2 (10:00→20:29)
[2022-05-27] MEDS: EFFEXOR TAB 75 MG (BID DOSING) PO SCH ×2 (10:00→20:27)
[2022-05-27] MEDS: ALLEGRA PO SCH (10:00)
[2022-05-27] MEDS: DETROL LA 4 MG CAP EXT REL PO SCH (10:00)
[2022-05-27] MEDS: JANUVIA PO SCH ×2 (10:01→20:31)
[2022-05-27] MEDS: MICRO K EXTEN CAP 10 MEQ PO SCH (10:01)
[2022-05-27] MEDS: PREDNISONE TAB 20 MG PO SCH ×2 (10:02→20:27)
[2022-05-27] MEDS: ZyrTEC TAB 10 MG PO SCH (10:02)
[2022-05-27] MEDS: SINGULAIR TAB 10 MG PO SCH (10:02)
[2022-05-27] MEDS: COZAAR PO SCH (10:02)
[2022-05-27] MEDS: PEPCID 20 MG VIAL 20 MG in NS 50 ML IV 50 ML IV SCH ×2 (10:03→20:30)
[2022-05-27] MEDS: PREMARIN PO SCH (12:08)
[2022-05-27 16:27] LABS: BASOPHILS % (AUTO) 0.6 % (0.2-1.0); EOSINOPHILS % (AUTO) 0.5 % (0.9-2.9); HEMATOCRIT 22.8 % (36.0-47.0); HEMOGLOBIN 8.2 g/dL (12.0-16.0); LYMPHOCYTES # (AUTO) 3.1 X10^3/uL (1.3-2.9); LYMPHOCYTES % (AUTO) 78.6 % (21.0-51.0); MEAN CORPUSCULAR HEMOGLOBIN 28.7 pg (27.0-34.0); MEAN CORPUSCULAR HGB CONC 35.8 g/dL (33.0-35.0); MEAN CORPUSCULAR VOLUME 80.3 fL (80.0-100.0); MONOCYTES # (AUTO) 0.1 x10^3/uL (0.3-0.8); MONOCYTES % (AUTO) 3.1 % (0.0-13.0); NEUTROPHILS # (AUTO) 0.7 x10^3/uL (2.2-4.8); NEUTROPHILS % (AUTO) 17.2 % (42.0-75.0); RED BLOOD COUNT 2.84 X10^6/uL (3.5-5.4); RED CELL DISTRIBUTION WIDTH 16.4 % (11.6-16.5)
[2022-05-27 16:50] LABS: INR 1.37 (0.8-1.3)
[2022-05-27 17:17] LABS: PLATELET MORPHOLOGY COMMENT NORMAL (NORMAL)
[2022-05-27] MEDS: ZOCOR TAB 40 MG PO SCH (20:27)
[2022-05-27] MEDS: REQUIP PO SCH (20:27)
[2022-05-27 21:14] VITALS: BP 143/74
== END 2022-05-27 22:00 | disposition short-term general hospital (02) | DRG 812 ==
LOC: ER 11:38 → ICU 13:19
PROVIDERS: ADMIT Internal Medicine; ATTEND Internal Medicine
DX: R53.1 Weakness; R11.2 Nausea with vomiting, unspecified; I10 Essential (primary) hypertension; E87.1 Hypo-osmolality and hyponatremia; R19.7 Diarrhea, unspecified; K58.0 Irritable bowel syndrome with diarrhea; D75.838 Other thrombocytosis; E03.8 Other specified hypothyroidism; D64.89 Other specified anemias; K21.9 Gastro-esophageal reflux disease without esophagitis; R42 Dizziness and giddiness; E11.65 Type 2 diabetes mellitus with hyperglycemia; E86.0 Dehydration; Z20.822 Contact with and (suspected) exposure to COVID-19